=== PATIENT | female | born 1995 | race African-American/Black ===

== ENCOUNTER 2024-01-27 01:58 | Emergency (ER) | payer MEDICAID ==
[~2024-01-27] VITALS: Ht 162.6 cm; Wt 59.0 kg
[2024-01-27 02:09] VITALS: O2SAT 100
[2024-01-27 02:10] VITALS: BP 125/71; PULSE 102; RESP 15; TEMP 36.50292; O2SAT 99
[2024-01-27] MEDS: ONDANSETRON 4MG ODT PO STA (03:52)
[2024-01-27] MEDS: MAGNESIUM/ALUMINUM HYDROXIDE/SIMETHICONE 30ML UDC PO STA (03:52)
[2024-01-27] MEDS: FAMOTIDINE 20MG TABLET PO ONE (03:52)
[2024-01-27 03:58] LABS: PROTHROMBIN TIME 11.3 sec (9.6-11.0)
[2024-01-27 04:00] LABS: CARBON DIOXIDE 24 mEq/L (21-32); CHLORIDE 106 mEq/L (98-107); POTASSIUM 3.5 mEq/L (3.5-5.1); SODIUM 140 mEq/L (136-145)
[2024-01-27 04:01] LABS: CALCIUM 9.7 mg/dL (8.7-10.4)
[2024-01-27 04:06] LABS: GLUCOSE 82 mg/dL (70-105); UREA NITROGEN BLOOD 12 mg/dL (9-23)
[2024-01-27 04:07] LABS: ALANINE AMINOTRANSFERASE 13 IU/L (10-49)
[2024-01-27 04:08] LABS: ALBUMIN 5.1 g/dL (3.2-4.8); ASPARTATE AMINOTRANSFERASE 24 IU/L (<34); BILIRUBIN DIRECT 0.1 mg/dL (<=3.0); BILIRUBIN TOTAL 0.5 mg/dL (0.1-1.0); ETHANOL BLOOD < 10 mg/dL (<10); PROTEIN TOTAL 8.9 g/dL (6.0-8.3)
[2024-01-27 04:31] LABS: HCG SCREEN NEGATIVE
[2024-01-27 05:16] LABS: CREATININE 0.5 mg/dL (0.6-1.0)
[2024-01-27 06:32] LABS: BASOPHILS % 0.4 % (0.0-2.0); DIFFERENTIAL COMMENT 0; EOSINOPHILS % 0.1 % (0.0-5.0); HEMATOCRIT. 34.2 % (36.0-48.0); HEMOGLOBIN. 11.7 g/dL (12.0-16.0); LYMPHOCYTES % 18.8 % (20.0-50.0); MEAN CORPUSCULAR HEMOGLOBIN 27.1 pg (28.0-32.0); MEAN CORPUSCULAR HGB CONC 34.2 g/dL (31.0-37.0); MEAN CORPUSCULAR VOLUME 79.1 fL (81.0-99.0); MEAN PLATELET VOLUME 9.3 fl (7.4-10.4); MONOCYTES % 3.3 % (2.0-8.0); NEUTROPHILS % 77.4 % (40.0-76.0); PLATELET 144 x1000/uL (130-400); RED BLOOD CELL COUNT 4.33 mill/uL (4.2-5.4); RED CELL DISTRIBUTION WIDTH 15.4 % (11.6-14.6); WHITE BLOOD COUNT 4.7 x1000/uL (4.5-11.0)
[2024-01-27] MEDS ORDERED: ONDA-239 PO (06:58)
[2024-01-27] MEDS: DIPHENHYDRAMINE 25MG CAPSULE PO NR (07:00)
== END 2024-01-27 07:20 | disposition home or self-care (01) ==
LOC: ER 01:58
DX: R11.2 Nausea with vomiting, unspecified (principal); F19.90 Other psychoactive substance use, unspecified, uncomplicated
CPT/HCPCS: 80076; 80048; 80320; 84703; 83690; 85025; 85610; 36415; 99284; Q0163; Q0162; G0480